=== PATIENT | female | born 1950 ===

== ENCOUNTER 2024-09-13 08:50 | Day surgery (SDC) | payer BC, MEDICARE ==
[2024-09-13] MEDS: Lactated Ringers 1,000 ML IV SCH (09:10)
[2024-09-13] MEDS ORDERED: Propofol 200 MG/20 ML SDV ONE (10:00)
[2024-09-13] MEDS ORDERED: Lidocaine 1% 4 ML ONE (10:00)
[2024-09-13] MEDS: Ketorolac 30 MG/ML SDV IVPUSH ONE (11:13)
== END 2024-09-13 11:50 | disposition home or self-care (01) ==
LOC: JD.SDS 08:50
PROVIDERS: ATTEND Surgery
DX: Z12.11 Encounter for screening for malignant neoplasm of colon (principal); D12.5 Benign neoplasm of sigmoid colon; N84.0 Polyp of corpus uteri; K62.1 Rectal polyp; K57.30 Diverticulosis of large intestine without perforation or abscess without bleeding; E78.5 Hyperlipidemia, unspecified; E66.9 Obesity, unspecified; Z68.34 Body mass index [BMI] 34.0-34.9, adult; Z86.0101 Personal history of adenomatous and serrated colon polyps; Z79.899 Other long term (current) drug therapy
CPT/HCPCS: 45380; 58100; J1885; J2003; J2704; J7120; 00811; 88305; 99100